=== PATIENT | male | born 1950 | race Caucasian/White ===

== ENCOUNTER → 2018-10-07 | Outpatient (CLI) | payer MEDICARE ==
[2014-04-15 15:04] VITALS: BP 113/65
[~2018-10-07] MED LIST: ALPR0.5T PO; ASPI81TA50 PO; CALC-53 PO; CYCL10TA2 PO; DIGO125T PO; DOXY100C2 PO; FENT1PAT21 TD; GABA-585 PO; MELO15TA23 PO; METF500T16 PO; METO25TA4 PO; MULT-245 PO; OMEP40CA2 PO; SENN8.6C2 PO; VENL37.56 PO; VENL75TA PO
--- NOTE | 2018-10-07 23:48 | PAIN ---
DATE OF SERVICE: 10/07/2018 INITIAL CONSULTATION FOR PAIN CLINIC CHIEF COMPLAINT: Low back, bilateral lower extremity pain. HISTORY OF PRESENT ILLNESS: This is a 67-year-old male who presents with history of pain in the low back, bilateral lower extremity for many years, but worse over the past 6-7 months, not a result of any specific recent injury or accident he is aware of. The patient has had 5 lumbar surgeries with potential fusion and instrumentations. He has recently seen his neurosurgeon who is recommending no further surgeries or interventional techniques on his low back. The patient reports the pain is constant, sharp, throbbing, shooting with numbness across the back into the lower extremities, mostly in the posterior gluteus, posterior thighs, posterior calves as well as the anterior thighs as well bilaterally, essentially equal right and left, but right side is slightly more painful than the left some days. The patient reports it is worse with walking, standing, changing positions, better with sitting or lying down, but awakens him from sleep or at least once a night, but not every night. The patient reports it does not affect her bowel or bladder control, does affect her ability to walk significantly; however, is not using any assistive devices such as canes or walkers to ambulate. The patient did have an MRI scan, which shows no significant change from a study of 10/06/2017. Multilevel neural foraminal narrowing most noted at L1-L2, bone fusion from L2 through S1 and probable L1-L2 intervertebral fusion, L3-L5 anterior ankylosis. The patient rates her disability from 0-10, 10 being the worst, is a 10 with family and home responsibilities, recreation, social activity; 8 with occupation; 3 with self-care and 1 with life support activities. The patient reports no loss of complete motor function, but significant fatigability of both the lower extremities with walking more than about 10-15 minutes or climbing a lot of stairs. PAST MEDICAL HISTORY: Significant for hearing loss, diabetes type 2, hypertension, cigarette smoking, tachycardia, arthritis. PREVIOUS SURGERY: Include lumbar surgery x 5, cervical surgery x 2, carpal tunnel release on the right. CURRENT MEDICATIONS: Include gabapentin, meloxicam, metformin, fentanyl patch 100 mcg, metoprolol, digoxin, venlafaxine, Xanax, omeprazole, calcium, senna, daily baby aspirin and multivitamin. ALLERGIES: INCLUDES PENICILLIN, MORPHINE AND ASPIRIN, WHICH CAUSES STOMACH UPSET. SOCIAL HISTORY: The patient smokes about half pack of cigarettes for many years, probably 50+. Does not drink alcohol, does not use any illegal, illicit or recreational drugs. He is , lives with his spouse and lives with one child and 4 grandchildren in the home. He takes care of the grandchildren during the day. The patient lives locally in [place], [place]. Reports he is currently retired. REVIEW OF SYSTEMS: The patient's review of systems is positive for those items mentioned in history of present illness. All systems reviewed and otherwise negative. It is complete, full and well documented on the patient's chart. PHYSICAL EXAMINATION: VITAL SIGNS: The patient's blood pressure 130/74, pulse 65, respirations 18, temperature 98.2 degrees Fahrenheit. Height is 5 feet 8 inches, weight is 182 pounds. GENERAL: The patient is awake, alert, oriented, appropriate, very pleasant demeanor. HEENT: Shows normocephalic, atraumatic. Extraocular movements are intact and symmetrical. Oral cavity: Mucous membranes are moist and pink. Dentition is intact. NECK: Shows anterior throat supple without palpable lymphadenopathy noted. Swallow reflex is symmetrical. CHEST: Shows normal on inspection. Breath sounds are clear to auscultation bilaterally. HEART: Shows S1, S2 clear. No murmurs auscultated. ABDOMEN: Soft, nontender, nondistended. No palpable organomegaly is noted. No rebound or guarding demonstrated. BACK: Shows spine grossly in the midline. Normal appearing thoracic kyphosis and flattening of the lordotic curvature. Lumbar paraspinous muscle shows symmetrical on inspection, well-healed surgical scarring in the midline, which is fairly extensive. With palpation shows some moderate tenderness diffusely bilaterally, going diffusely without radiation. The patient has good rotational motion of lumbar spine, both laterally greater than 10 degrees right and left as well as extension greater than 10 degrees, forward flexion 45 degrees without significant pain reported. EXTREMITIES: Lower extremities show deep tendon reflexes at 1+ in the patellar and tendo calcaneus tendons are equal. Motor exam is approximately 4 on a scale of 5, but symmetrical with dorsiflexion, extension, quadriceps and hamstring flexion. Peripheral pulses are 1+ posterior tibia. No peripheral edema is noted. Straight leg raise is noted to be positive bilaterally at about 35 degrees, decreased with knee flexion. Gaenslen's and Justus's maneuvers are negative bilaterally as well. The patient is able to stand, it is difficult to stand on his toes as he loses balance quickly, walking with a slight shuffling gait and somewhat wide stance, not using any assistive devices to ambulate. SKIN: Shows warm and dry, good turgor. No edema. No sores, rashes or bruising. IMPRESSION: This is a 67-year-old male with: 1. Long history of low back, bilateral lower extremity pain, worse over the past 6-7 months. 2. Lumbar MRI as noted. 3. Hypertension. 4. Arthritis. 5. Diabetes. PLAN: Options were discussed with the patient including conservative medical management, physical therapy, interventional techniques and he has had multiple interventional techniques over the years, multiple surgeries on his back, recent evaluation with Neurosurgery without any recommendation for further surgery, but with significant pain and using fentanyl patch at 100 mcg. Discussed a spinal cord stimulator with the patient. He is interested in pursuing this. We will make the arrangements first for psychological evaluation to deem appropriateness for interventional and implantable devices for the spine and spine surgery, also make arrangements for a spinal cord stimulator temporary lead placement and trial. The patient will return once the psychological evaluation is completed and we will proceed with spinal cord stimulator temporary placement at that time. DARIA GARCÍA MD DR: NACHO/pete JOB#: [id number] / [id number] ALTON Belcher MD
== END | disposition home or self-care (01) ==
LOC: PNCL 13:00
PROVIDERS: ATTEND Anesthesiology
DX: M54.5 Low back pain (principal); M79.605 Pain in left leg; M79.604 Pain in right leg; M40.294 Other kyphosis, thoracic region; M19.90 Unspecified osteoarthritis, unspecified site; I10 Essential (primary) hypertension; E11.9 Type 2 diabetes mellitus without complications; H91.90 Unspecified hearing loss, unspecified ear; F17.210 Nicotine dependence, cigarettes, uncomplicated
CPT/HCPCS: G0463

== ENCOUNTER → 2018-11-17 | Outpatient (CLI) | payer MEDICARE ==
[2014-04-15 15:04] VITALS: BP 113/65
[~2018-11-17] MED LIST changes: +LIDOCAINE 1% PF 2 ML VIAL. ONE
--- NOTE | 2018-11-18 01:18 | PN ---
DATE: 11/17/2018 PROGRESS NOTE FOR PAIN CLINIC DIAGNOSES: Lumbar radiculopathy with lumbar degenerative disk disease and lumbar post-laminectomy syndrome. HISTORY OF PRESENT ILLNESS: The patient is a 68-year-old male who returns for followup status post evaluation and preauthorization for spinal cord stimulator trial. He would like to proceed with this today. He has also had a psychiatric evaluation, which put him in a good category for spinal manipulations and implantable devices. Per Psychology, the patient reports still significant pain in the low back, bilateral lower extremities, mostly in the posterior gluteus, posterior thighs, posterior calves, worse with walking, standing, changing positions. No significant changes. The patient reports pain anywhere from 8-9 on a scale of 10 at all times, average, worst and least and is an 8-9 today. The patient reports it is waking him from sleep at night. He sleeps mostly on his right side, but again only for a few hours before he is awake and the patient reports the pain as aching, sharp, cramping, stabbing, burning and tingling as well as radiating and severe. PHYSICAL EXAMINATION: GENERAL: Blood pressure 123/51, pulse 53, respirations 18, temperature 98.6 degrees Fahrenheit, height is 5 feet 8 inches, weight is 183 pounds. GENERAL: The patient is awake, alert, oriented, appropriate, very pleasant demeanor. HEENT: Shows normocephalic, atraumatic. Extraocular movements are intact and symmetrical. Oral cavity: Mucous membranes moist and pink. Dentition is intact. NECK: Shows throat supple without palpable lymphadenopathy noted. Swallow reflex symmetrical. CHEST: Shows normal on inspection. Breath sounds clear to auscultation bilaterally. HEART: Shows S1, S2 clear. No murmurs auscultated. ABDOMEN: Soft, nontender, nondistended. No palpable organomegaly is noted. No rebound or guarding demonstrated. BACK: Shows spine grossly in the midline. Normal appearing thoracic kyphosis and significant flattening of lumbar lordotic curvature with well-healed surgical scarring noted in the lumbar distribution. EXTREMITIES: The patient's lower extremities showed deep tendon reflexes at 1+ in the patella and tendo calcaneus tendons are equal. Motor exam is approximately 4 on a scale of 5, but equal and symmetrical bilaterally. Peripheral pulses are 1+ posterior tibia. No peripheral edema is noted bilaterally. Options were discussed with the patient. The patient's old chart was reviewed and his current medication regimen updated. Current review of systems updated today as well. We will proceed with a spinal cord stimulator trial placement with leads x 2. Risks were again discussed including, but not limited to bleeding, infection, possibility of epidural hematoma, subsequent neurologic compromise, dural puncture, headaches, spinal cord and/or nerve damage, side effects of steroid medication and poor results regarding pain control. The patient understands and wished to proceed. The patient will return to clinic in approximately 1 week for followup and removal of temporary leads and assessment of his pain level at that time. The patient will be in contact with our [employer] services representative, Mr. Doug Monson daily. He was counseled as to use of his remote control for the stimulator and care of the wires and the wounds. DIAGNOSES: Lumbar radiculopathy with lumbar degenerative disk disease and post-lumbar laminectomy syndrome. PROCEDURE: Spinal cord stimulator temporary lead placement x 2. Under sterile prep and drape using local anesthetic using C-arm fluoroscopic guidance with insertion site after local anesthesia with 1% lidocaine at the L2-L3 interspace, a 14-gauge Abeona Therapeuticstead needle x 2 with stylets with preservative-free normal saline, loss of resistance technique with negative aspiration at each insertion site. Spinal cord stimulator leads were then threaded in without difficulty and without resistance in the midline and posteriorly verified with AP and lateral C-arm fluoroscopic views with the first wire to lie with the superior lead over the superior endplate of the T8 vertebral body and the second lead tip overlying the superior lead over the superior endplate of T9 vertebral body is again verified both posterior and midline with AP and lateral fluoroscopic views. Deputy were withdrawn, stylets withdrawn, 2-0 silk was used to secure the leads with anchoring devices at the site of insertion. Mastisol and Tegaderms were then applied as well as tape and gauze to reinforce the dressing. CONDITION AT DISCHARGE: Stable. The patient tolerated the procedure well, had no complications. DARIA GARCÍA MD DR: NACHO/pete JOB#: [id number] / [id number]
== END ==
LOC: PNCL 12:19
PROVIDERS: ATTEND Anesthesiology
DX: M51.16 Intervertebral disc disorders with radiculopathy, lumbar region (principal); M96.1 Postlaminectomy syndrome, not elsewhere classified
CPT/HCPCS: 63650; C1897

== ENCOUNTER → 2018-11-25 | Outpatient (CLI) | payer MEDICARE ==
[2014-04-15 15:04] VITALS: BP 113/65
[~2018-11-25] MED LIST changes: -LIDOCAINE 1% PF 2 ML VIAL. ONE
--- NOTE | 2018-11-26 01:55 | PAIN ---
DATE OF SERVICE: 11/25/2018 PROGRESS NOTE FOR PAIN CLINIC DIAGNOSES: Lumbar radiculopathy with lumbar degenerative disk disease and lumbar post-laminectomy syndrome. The patient is a 68-year-old male, who returns for followup status post spinal cord stimulator temporary leads placement x 1 week and 1 day. The patient returns today for removal of the leads and reports doing very much better, about 75-80% improvement on most days. He did have an incident where his controller box was not functioning and obtained about 50% level ____, but after it was replaced, it went back up to about a 75-80% level of decreased pain in his low back and bilateral lower extremities. The patient reports his right leg is still more painful than the left, but he is doing significantly better after the stimulator trial. The patient reports he is sleeping better at night. Only occasionally awakened him from sleep over the past week. He was not doing a lot of strenuous activity, but was very active, up and around, walking with greater comfort and walking greater distances. The patient reports the pain with the stimulator has been much reduced. Still some aching, sharp, dull, alternating pain in the low back, but no longer with the tingling, stabbing, shooting or constant severe pain that he had prior to that. The patient rates his pain as 8-9 on a scale of 10 at its worst in the past week, average was a 3 or 4 and is a 3 today. PHYSICAL EXAMINATION: VITAL SIGNS: The patient's blood pressure is 108/59, pulse 68, respirations 20, temperature 98.0 degrees Fahrenheit, weight is ____. GENERAL: The patient is awake, alert, oriented, appropriate, very pleasant demeanor. HEENT: Head is normocephalic, atraumatic. Extraocular movements are intact and symmetrical. Oral cavity: Mucous membranes moist and pink. Dentition is intact. NECK: Shows anterior throat supple without palpable lymphadenopathy noted. Swallow reflex symmetrical. CHEST: Shows normal on inspection. Breath sounds are clear. BACK: Shows spine grossly in the midline. The patient's bandages were taken down, showing good site and a clean site of spinal cord stimulator leads x 2. Under sterile technique, the sutures were removed and leads were removed x 2 with tips intact. Each site is clean and dry. No erythema. No discharge. No drainage. No tenderness. Site was cleaned with sterile alcohol and sterile bandage then applied. Options were discussed with the patient. The patient's old chart was reviewed as his current medication regimen updated. Current review of systems updated today as well. We will make arrangements as the patient was impressed with the amount of relief he got with his stimulator system. We will make arrangements for permanent implantation. DARIA GARCÍA MD DR: NACHO/pete JOB#: [id number] / [id number]
== END | disposition home or self-care (01) ==
LOC: PNCL 13:42
PROVIDERS: ATTEND Anesthesiology
DX: M51.16 Intervertebral disc disorders with radiculopathy, lumbar region (principal); M96.1 Postlaminectomy syndrome, not elsewhere classified
CPT/HCPCS: G0463